=== PATIENT | female | born 1975 | race Caucasian/White ===

== ENCOUNTER 2018-01-21 15:12 | Outpatient (CLI) | payer BC | END 2018-01-21 15:13 | disposition home or self-care (01) | LOC: BICMAMMO 15:12 | PROVIDERS: ATTEND Internal Medicine Medical Oncology | DX: Z12.31 Encounter for screening mammogram for malignant neoplasm of breast (principal); Z85.89 Personal history of malignant neoplasm of other organs and systems | CPT/HCPCS: 77063; 77067 ==

== ENCOUNTER 2019-01-27 08:49 | Outpatient (CLI) | payer BC ==
--- NOTE | 2019-01-27 09:35 | MMO ---
Bilateral MAMMO Bilat Screen [facility]. CLINICAL HISTORY: Patient is 44 years old and is seen for screening. The patient has no family history of breast cancer. The patient has a history of other cancer at age 22. VIEWS: The views performed were: bilateral craniocaudal with tomosynthesis and bilateral mediolateral oblique with tomosynthesis. FILMS COMPARED: The present examination has been compared to prior imaging studies performed at [facility] on 01/15/2017 and 01/21/2018. MAMMOGRAM FINDINGS: There are scattered fibroglandular densities. There are no suspicious masses, suspicious calcifications, or new areas of architectural distortion. IMPRESSION: THERE IS NO MAMMOGRAPHIC EVIDENCE OF MALIGNANCY. A ROUTINE FOLLOW-UP MAMMOGRAM IN 1 YEAR IS RECOMMENDED. THE RESULTS OF THIS EXAM WERE SENT TO THE PATIENT. ACR BI-RADS Category 1 - Negative MAMMOGRAPHY NOTE: 1. A negative mammogram report should not delay a biopsy if a dominant of clinically suspicious mass is present. 2. Approximately 10% to 15% of breast cancers are not detected by mammography. 3. Adenosis and dense breasts may obscure an underlying neoplasm.
== END 2019-01-27 08:50 | disposition home or self-care (01) ==
LOC: BICMAMMO 08:49
PROVIDERS: ATTEND Internal Medicine Medical Oncology
DX: Z12.31 Encounter for screening mammogram for malignant neoplasm of breast (principal); Z85.89 Personal history of malignant neoplasm of other organs and systems
CPT/HCPCS: 77063; 77067

== ENCOUNTER 2020-03-22 08:56 | Outpatient (CLI) | payer BC ==
--- NOTE | 2020-03-22 09:24 | MMO ---
Bilateral MAMMO Bilat Screen [facility]. CLINICAL HISTORY: Patient is 45 years old and is seen for screening. VIEWS: The views performed were: . FILMS COMPARED: The present examination has been compared to prior imaging studies performed at [facility] on 01/15/2017, 01/21/2018 and 01/27/2019. This study has been interpreted with the assistance of computer-aided detection. MAMMOGRAM FINDINGS: There are scattered fibroglandular densities. There are no suspicious masses, suspicious calcifications, or new areas of architectural distortion. IMPRESSION: THERE IS NO MAMMOGRAPHIC EVIDENCE OF MALIGNANCY. A ROUTINE FOLLOW-UP MAMMOGRAM IN 1 YEAR IS RECOMMENDED. THE RESULTS OF THIS EXAM WERE SENT TO THE PATIENT. ACR BI-RADS Category 1 - Negative MAMMOGRAPHY NOTE: 1. A negative mammogram report should not delay a biopsy if a dominant of clinically suspicious mass is present. 2. Approximately 10% to 15% of breast cancers are not detected by mammography. 3. Adenosis and dense breasts may obscure an underlying neoplasm. Reported by: TONY NUNEZ MD Electonically Signed: [id number]
== END 2020-03-22 08:57 | disposition home or self-care (01) ==
LOC: BICMAMMO 08:56
PROVIDERS: ATTEND Internal Medicine Medical Oncology
DX: Z12.31 Encounter for screening mammogram for malignant neoplasm of breast (principal)
CPT/HCPCS: 77063; 77067

== ENCOUNTER 2021-03-21 08:54 | Outpatient (CLI) | payer BC ==
[2021-03-22 11:14] LABS: SARS-CoV-2 PCR by NAA Not Detected (NotDetected)
== END 2021-03-21 08:55 | disposition home or self-care (01) ==
LOC: LABBT 08:54
PROVIDERS: ATTEND Specialist
DX: Z01.812 Encounter for preprocedural laboratory examination (principal); K14.8 Other diseases of tongue; Z85.819 Personal history of malignant neoplasm of unspecified site of lip, oral cavity, and pharynx; Z20.822 Contact with and (suspected) exposure to COVID-19
CPT/HCPCS: U0003; U0005

== ENCOUNTER 2021-03-24 06:22 | Day surgery (SDC) | payer BC ==
[2021-03-23 12:47] VITALS: BMI 27.9
[2021-03-24] MEDS ORDERED: EPINEPHrine 1 MG/ML AMP ONE (08:07)
[2021-03-24] MEDS ORDERED: Fentanyl 100 MCG/2 ML VIAL ONE ×2 (08:08→09:13)
[2021-03-24] MEDS ORDERED: PROPOFOL 200 MG/20 ML VIAL ONE (08:16)
[2021-03-24] MEDS ORDERED: Rocuronium Bromide 10 MG/ML (10ML VIAL) ONE (08:16)
[2021-03-24] MEDS ORDERED: PHENYLEPHRINE-NS 100 MCG/ML 10 ML SYRINGE ONE (08:16)
[2021-03-24] MEDS ORDERED: Dexamethasone 20 MG/5 ML VIAL ONE (08:16)
[2021-03-24] MEDS ORDERED: Lidocaine 1% PF 5 ML VIAL ONE (08:16)
[2021-03-24] MEDS ORDERED: Ondansetron PF 4 MG/2 ML Vial ONE (08:16)
[2021-03-24] MEDS ORDERED: SUGAMMADEX SODIUM 500 MG/5 ML VIAL ONE (08:32)
[2021-03-24] MEDS ORDERED: Bupivacaine 0.25% HCL 30 ML VIAL ONE (08:42)
== END 2021-03-24 11:38 | disposition home or self-care (01) ==
LOC: SDC 06:22
PROVIDERS: ATTEND Specialist
PROC: 0CBM8ZX Excision of Pharynx, Via Natural or Artificial Opening Endoscopic, Diagnostic (ICD-10-PCS; principal; 2021-03-24)
DX: C01 Malignant neoplasm of base of tongue (principal); E03.9 Hypothyroidism, unspecified; K21.9 Gastro-esophageal reflux disease without esophagitis; Z79.899 Other long term (current) drug therapy; Z88.5 Allergy status to narcotic agent
CPT/HCPCS: 85014; 88305; 88342; J0171; J1100; J2405; J2704; J3010; S0020

== ENCOUNTER 2021-11-26 05:25 | Emergency (ER) | payer BC ==
[2021-11-26 06:18] LABS: #Eosinphils 0.1 thou/uL (0.0-0.7); #Lymphocytes 1.5 thou/uL (1.20-3.40); #Monocytes 0.6 thou/uL (0.11-0.59); #Neutrophils 6.3 thou/uL (1.40-6.50); %Basophils 0.1 % (0.0-1.0); %Eosinophils 0.9 % (0.0-10.0); %Lymphocytes 17.7 % (21.0-51.0); %Monocytes 7.4 % (0.0-10.0); %Neutrophils 73.9 % (42.0-75.0); Hemoglobin 12.5 g/dL (12.0-16.0); Mean Corpuscular HGB CONC 32.4 g/dL (32.0-36.0); Mean Corpuscular Volume 86.5 fL (78.0-98.0); Mean Platelet Volume 8.3 fL (7.4-10.4); Platelet Count 226 thou/uL (130-400); RBC Distribution Width 13.8 % (11.5-14.5); Red Blood Cell (RBC) Count 4.45 mill/uL (4.20-5.40); White Blood Cell (WBC) Count 8.5 thou/uL (4.8-10.8)
== END 2021-11-26 06:50 | disposition home or self-care (01) ==
LOC: ERS 05:25
DX: L03.211 Cellulitis of face (principal); C76.0 Malignant neoplasm of head, face and neck
CPT/HCPCS: 36415; 85025; 99283

== ENCOUNTER 2021-11-28 10:07 | Emergency (ER) | payer BC ==
[2021-11-28 11:33] LABS: #Eosinphils 0.2 thou/uL (0.0-0.7); #Lymphocytes 1.3 thou/uL (1.20-3.40); #Monocytes 0.7 thou/uL (0.11-0.59); #Neutrophils 6.7 thou/uL (1.40-6.50); %Basophils 0.4 % (0.0-1.0); %Eosinophils 1.9 % (0.0-10.0); %Lymphocytes 14.5 % (21.0-51.0); %Monocytes 8.3 % (0.0-10.0); %Neutrophils 74.9 % (42.0-75.0); Hemoglobin 12.4 g/dL (12.0-16.0); Mean Corpuscular HGB CONC 31.5 g/dL (32.0-36.0); Mean Corpuscular Hemoglobin 27.4 pg (27.0-31.0); Mean Platelet Volume 8.7 fL (7.4-10.4); Platelet Count 210 thou/uL (130-400); RBC Distribution Width 13.9 % (11.5-14.5); Red Blood Cell (RBC) Count 4.51 mill/uL (4.20-5.40); White Blood Cell (WBC) Count 8.9 thou/uL (4.8-10.8)
[2021-11-28] MEDS ORDERED: Iopamidol-370 76% 500 ML 1 ML ONE (11:40)
[2021-11-28 11:43] LABS: BHCG - Serum Negative (NEGATIVE); Pregs Control Background? CLEAR/WHITE (CLR/WHITE); Pregs Control Bar Appear? YES (CONTROL BAR)
[2021-11-28 11:58] LABS: Albumin 4.4 g/dL (3.5-5.0)
[2021-11-28 11:59] LABS: Chloride 103 mmol/L (98-107); Potassium 3.6 mmol/L (3.5-5.1); Sodium 139 mmol/L (136-145)
[2021-11-28 12:00] LABS: Calcium 9.6 mg/dL (7.8-10.44)
[2021-11-28 12:01] LABS: Globulin 3.7 g/dL (2.4-3.5); Glucose 94 mg/dL (70-105); Protein, Total 8.1 g/dL (6.0-8.3)
[2021-11-28 12:02] LABS: Anion Gap 17 mmol/L (10-20); Carbon Dioxide 23 mmol/L (22-29)
[2021-11-28 12:03] LABS: Bilirubin, Total 0.5 mg/dL (0.2-1.2)
[2021-11-28 12:04] LABS: Alkaline Phosphatase 120 U/L (40-110); Calc. Creatinine Clearance 0 mL/min (70-130)
[2021-11-28 12:05] LABS: BUN (Urea Nitrogen) 8 mg/dL (7.0-18.7)
[2021-11-28 12:06] LABS: AST (SGOT) 15 U/L (5-34)
[2021-11-28 12:07] LABS: ALT (SGPT) 13 U/L (8-55)
[2021-11-28] MEDS ORDERED: Ampicillin/Sulbactam 3 GM in Sodium Chloride 0.9% 100 ML IVPB SCH (12:45)
== END 2021-11-28 14:07 | disposition home or self-care (01) ==
LOC: ERS 10:07
DX: L03.213 Periorbital cellulitis (principal); Z79.899 Other long term (current) drug therapy
CPT/HCPCS: 70487; 80053; 83605; 84703; 85025; 87040; 96365; J0295; J3490; Q9967

== ENCOUNTER 2023-03-26 09:22 | Outpatient (CLI) | payer BC | END 2023-03-26 09:23 | disposition home or self-care (01) | LOC: BICMAMMO 09:22 | PROVIDERS: ATTEND Internal Medicine | DX: Z12.31 Encounter for screening mammogram for malignant neoplasm of breast (principal) | CPT/HCPCS: 77063; 77067 ==

== ENCOUNTER 2024-09-09 10:50 | Outpatient (CLI) | payer BC | END 2024-09-09 10:51 | disposition home or self-care (01) | LOC: BICMAMMO 10:50 | PROVIDERS: ATTEND Internal Medicine | DX: Z12.31 Encounter for screening mammogram for malignant neoplasm of breast (principal); Z85.828 Personal history of other malignant neoplasm of skin; Z85.89 Personal history of malignant neoplasm of other organs and systems | CPT/HCPCS: 77063; 77067 ==